=== PATIENT | female | born 1980 | race Native Hawaiian/Other Pacific Islander ===

== ENCOUNTER 2024-11-11 12:46 | Emergency (ER) | payer OTHER, SELFPAY ==
--- OUTSIDE RECORDS SUMMARY | 2024-11-11 12:48 | XMS_ITS | Encounter Summary ---
Author Organization [facility] Address [facility] [place] [address] Care Team Providers Care Dispatcher Chief Coal Slurry Name Role Phone Unavailable Primary Care Provider Unavailabl e Reason for Referral * Diagnostic Imaging Ultrasound - Closed Specialty Diagnoses / Procedures Referred By Contac t Referred To Contact Diagnoses related condition, antepartum Procedures MFM US Comprehensive Single Vania Keller MD [address] [address] Phone: tel: fax: Referral ID Status Reason Start Date Expiration Date Visits Re quested Visits Authorized [id number] Closed 01/29/2018 01/29/2019 1 1 * - Closed Specialty Diagnoses / Procedures Referred By Contac t Referred To Contact Diagnoses related condition, antepartum Vania Keller MD [address] [address] Phone: tel: fax: Referral ID Status Reason Start Date Expiration Date Visits Re quested Visits Authorized [id number] Closed 01/29/2018 01/29/2019 1 1 Question Answer MFM Location [place] LAURIE 03/10/2018 Ultrasound NONE US PROC NONE MFM Issue Abnormal Ultrasound Findings (enter details in Comments) - Gestational diabetes, severe polyhydramnios MFM Consultation (unrelated to Ultrasound findings) Yes (enter details in Comments) - Gestational diabetes with severe polyhydramnios Genetic Counseling Consultation: No fax [phone] [facility] Vania Serrato Comments There is no height or weight on file to calculate BMI. >> Patient may proceed with recommendations for further testing as directed by the Maternal Medicine Specialist >> >> If requesting Echo: MFM will determine appropriate location for exam due to indication. >> If requesting Lung Maturity Amnio: If results indicate lung maturity, induction or C/S is recommended within 36 hours. Please schedule accordingly. Dear Patient: Please be aware that coverage of these services is subject to the terms and limitations of your health insurance plan. Call member services at your health plan with any benefit or coverage questions. Please bring the following to your appointment: >> Any x-rays, CTs or MRIs which have been performed. Contact the facility where they were done to arrange for picker / packer prior to your scheduled appointment. Any new CT, MRI or other procedures ordered by your specialist must be performed at a [facility] or coordinated by your clinic's referral office. >> List of current medications >> This referral request >> Any documents/labs given to you for this referral Encounter Details Date Type Department Care Team (Late st Contact Info) Description 01/29/2018 Orders Only [facility] [place] [address] [place] [address] Vania Keller MD [address] [place] [address] related condition, antepartum (Primary Dx) Social History Tobacco Use Types Packs/Day Years Used Date Smoking Tobacco: Never Assessed Comments Unknown Sex and Gender Information Value Date Recorded Sex Assigned at Not on file Legal 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 2) None of the anomalies commonly detected by ultrasound were evident. 3) Growth parameters and estimated weight were consistent with macrosomia (EFW is in the 99th %ile). 4) There is polyhydramnios with and ANNIE= 34.2 cm. 5) The BPP is 04/02. Narrative 02/05/2018 4:51 PM CDT Comprehensive ----- Pat. Name: EARLINE LUTZ Study Date: 02/05/2018 2:17pm Pat. NO: [id number] Referring MD: VANIA KELLER Site: [facility] Shuttle Operator: Shanita Henry RDMS : 1980 Age: 37 ----- INDICATION ----- Polyhydramnios on outside ultrasound. GDM on Glyburide. METHOD ----- Transabdominal ultrasound examination. View: Suboptimal view: limited by late gestational age and position. ----- Khoury . Number of fetuses: 1. DATING ----- Date Details Gest. age LAURIE LMP 06/04/2017 35 w + 1 d 03/11/2018 U/S 02/05/2018 based upon AC, BPD, Femur, HC 38 w + 3 d 02/16/2018 Assigned dating Dating performed on 02/05/2018, based on the LMP 35 w + 1 d 03/11/2018 GENERAL EVALUATION ----- Cardiac activity: present. FHR 153 bpm. movements: visualized. Presentation: cephalic. Placenta: anterior. Umbilical cord: 3 vessel cord. Amniotic fluid: Amount of AF: Polyhydramnios. MVP 10.3 cm. ANNIE 34.2 cm. Q1 7.9 cm, Q2 8.5 cm, Q3 7.5 cm, Q4 10.3 cm. BIOMETRY ----- Main Biometry: BPD 90.3 mm 36w 4d Hadlock OFD 117.1 mm HC 329.8 mm 37w 4d Hadlock AC 379.2 mm 41w 6d Hadlock Femur 73.2 mm 37w 3d Hadlock Humerus 65.1 mm 37w 5d Guicho Weight Calculation: EFW 3,887 g 99% Grady EFW (lb,oz) 8 lb 9 oz Calculated by Jero ([id number]) Amniotic Fluid / FHR: AF MVP 10.3 cm ANNIE 34.2 cm FHR 153 bpm ANATOMY ----- The following structures appear normal: Head / Neck Cranium. Head size. Head shape. Choroid plexus. Midline falx. Thalami. Neck. Nuchal fold. Face Lips. Profile. Nose. Orbits. Heart / Thorax 4-chamber view. Cardiac position. Cardiac size. Cardiac rhythm. Diaphragm. Abdomen Abdominal wall. Stomach. Kidneys. Bladder. Liver. Bowel. Spine / Skelet. Cervical spine. Thoracic spine. Lumbar spine. Sacral spine. Extremities Arms. Legs. Gender: female. MATERNAL STRUCTURES ----- Cervix Not examined. Right Ovary Not examined. Left Ovary Not examined. BIOPHYSICAL PROFILE ----- 2: breathing movements 2: Gross body movements 2: tone 2: Amniotic fluid volume 04/02: Biophysical profile score RECOMMENDATION ----- We discussed the findings on today's ultrasound with the patient. The patient has a family history of large babies. Her smallest of 5 was near 9 lbs. So there may be some component of gestational diabetes affecting growth but to a large part this may be constitutional. We reviewed her blood sugar history and has lately had a change in meters due to high glucose readings that did not correlate with other meters. She reports fastings as low as 50's and 2 hr pp after breakfast that are below 100. We discussed the concern of hypoglycemia. Recommended she check a 2-4 am glucose as she wakes up to void at night. We discussed that if her fasting glucose continues to be that low, she may need to skip her evening glyburide or take it every other day. I discussed it further with Dr. Keller. Also, recommended twice weekly BPPS and delivery by 39 weeks if testing remains reassuring. Procedure Note Seymour Nation MD - 02/05/2018 Comprehensive ----- Pat. Name:Enmanuel LUTZ Date:02/05/2018 2:17pm Pat. NO: [id number] MD:VANIA KELLER Site:Micgrapher:Shanita Henry RDMS :1980Age:37 ----- INDICATION ----- Polyhydramnios on outside ultrasound. GDM on Glyburide. METHOD ----- Transabdominal ultrasound examination. View: Suboptimal view: limited bylate gestational age and position. ----- Khoury . Number of fetuses: 1. DATING ----- DateDetailsGest. age LAURIE LMP 06/04/201735 w + 1 d 03/11/2018 U/S 02/05/2018based upon AC, BPD, Femur, HC38 w + 3 d 02/16/2018 Assigned dating Dating performed on 02/05/2018, based onthe LMP 35 w +1 d 03/11/2018 GENERAL EVALUATION ----- Cardiac activity: present. FHR 153 bpm. movements: visualized. Presentation: cephalic. Placenta: anterior. Umbilical cord: 3 vessel cord. Amniotic fluid: Amount of AF: Polyhydramnios. MVP 10.3 cm. ANNIE 34.2 cm. Q17.9 cm, Q2 8.5 cm, Q3 7.5 cm, Q4 10.3 cm. BIOMETRY ----- Main Biometry: BPD 90.3 mm36w 4d Hadlock OFD 117.1 mm HC 329.8 mm37w 4d Hadlock AC 379.2 mm41w 6d Hadlock Femur 73.2 mm37w 3d Hadlock Humerus 65.1 mm37w 5d Guicho Weight Calculation: EFW 3,887 g99% Grady EFW (lb,oz) 8 lb 9 oz Calculated by Jero ([id number]) Amniotic Fluid / FHR: AF MVP 10.3 cm ANNIE 34.2 cm FHR 153 bpm ANATOMY ----- The following structures appear normal: Head / Neck Cranium. Head size. Head shape.Choroid plexus. Midline falx. Thalami. Neck. Nuchal fold. Face Lips. Profile. Nose. Orbits. Heart / Thorax 4-chamber view. Cardiac position.Cardiac size. Cardiac rhythm. Diaphragm. Abdomen Abdominal wall. Stomach. Kidneys.Bladder. Liver. Bowel. Spine / Skelet. Cervical spine. Thoracic spine. Lumbarspine. Sacral spine. Extremities Arms. Legs. Gender: female. MATERNAL STRUCTURES ----- Cervix Not examined. Right Ovary Not examined. Left Ovary Not examined. BIOPHYSICAL PROFILE ----- 2: breathing movements 2: Gross body movements 2: tone 2: Amniotic fluid volume 04/02: Biophysical profile score RECOMMENDATION ----- We discussed the findings on today's ultrasound with the patient. Thepatient has a family history of large babies. Her smallest of 5 was near 9lbs. So there may be some component of gestational diabetes affecting growth but to a large partthis may be constitutional. We reviewed her blood sugar history and haslately had a change in meters due to high glucose readings that did not correlate with othermeters. She reports fastings as low as 50's and 2 hr pp after breakfastthat are below 100. We discussed the concern of hypoglycemia. Recommended she check a 2-4 amglucose as she wakes up to void at night. We discussed that if her fastingglucose continues to be that low, she may need to skip her evening glyburide or take itevery other day. I discussed it further with Dr. Keller. Also,recommended twice weekly BPPS and delivery by 39 weeks if testing remains reassuring. IMPRESSION ----- 1) Intrauterine at 35 1/7 weeks gestational age. 2) None of the anomalies commonly detected by ultrasound were evident. 3) Growth parameters and estimated weight were consistent withmacrosomia (EFW is in the 99th %ile). 4) There is polyhydramnios with and ANNIE= 34.2 cm. 5) The BPP is 8. us Vania Keller MD [facility] ORDERABLE S Edited Result - Final documented in this encounter Visit Diagnoses Diagnosis related condition, antepartum- Primary related condition, antepartum documented in this encounter
--- OUTSIDE RECORDS SUMMARY | 2024-11-11 12:48 | XMS_ITS | Clinical Summary ---
Author Organization [employer] [facility] Address [address] [place] [address] Care Team Providers Care Tool Grinder Operator Surface Name Role Phone Pcp, No Primary Care Provider Unavailabl e Allergies Active Allergy Reactions Criticality Noted Date Comments Morphine Anaphylaxis High 12/03/2014 Medications ORDER - MEDICATION ORDER COMPOSER Calcium, 2 tabs daily, unsure of dose 0 10/11/2011 Active naproxen (ANAPROX DS) 550 mg tablet Take 1 tablet by mouth 2 times daily with meals. 30 tablet 0 09/16/2014 Active Active Problems Problem Noted Date Diagnosed Date Surveillance of previously p rescribed intrauterine contraceptive device 05/11/2011 Overview (10/03/2012): Mirena 05/11/11 Dermatophytosis of foot 11/06/2007 Immunizations Immunization Administration Dates Next Due Influenza A (H1N1), Inactivated (Age >=3 Years) 07/19/2009 Influenza, IIV3 (Age >=3 years) 07/19/2009 Influenza, IIV4 08/12/2015 Tdap 12/03/2014 Family History Medical History Relation Name Comments Diabetes Brother 1 Diabetes Brother 2 Diabetes Mother Thyroid Disease Other niece Diabetes Sister 1 Thyroid Disease Sister 1 Diabetes Sister 2 Thyroid Disease Sister 2 Relation Name Status Comments Brother 1 Brother 2 Mother Other Sister 1 Sister 2 Social History Tobacco Use Types Packs/Day Years Used Date Smoking Tobacco: Never Smokeless Tobacco: Never Tobacco Cessation:Counseling Given: Yes Alcohol Use Standard Drinks/Week Comments No 0 (1 standard drink = 0.6 oz pur e alcohol) Comments No Sex and Gender Information Value Date Recorded Sex Assigned at Not on file Legal Sex Female 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 Gender Identity Not on file Sexual Orientation Not on file 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 on 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 Not on file Not on file Obstetrics History Para Term AB IAB SAB Ectopic Multiple Livin g Live Births 6 1 1 5 Date Outcome GA Total Labor Labor/2nd/3rd Weight Sex Type Anes PTL Yamilet A1 A5 Name Clin SAB Last Filed Vital Signs Vital Sign Reading Time Taken Comments Blood Pressure 98/46 09/02/2015 4:06 PM CEMENT CONVEYOR OPERATOR Pulse 64 09/02/2015 4:06 PM CEMENT CONVEYOR OPERATOR Temperature 37.1 C (98.8 F) 09/02/2015 4:06 PM CEMENT CONVEYOR OPERATOR Respiratory Rate 16 09/02/2015 4:06 PM CEMENT CONVEYOR OPERATOR Oxygen Saturation 100% 09/16/2014 8:15 PM CEMENT CONVEYOR OPERATOR Inhaled Oxygen Concentration - - Weight 68.3 kg (150 lb 9.6 oz) 09/02/2015 4:06 P M CEMENT CONVEYOR OPERATOR Height 153 cm (5' 0.25) 09/02/2015 4:06 PM CEMENT CONVEYOR OPERATOR Body Mass Index 29.17 09/02/2015 4:06 PM CEMENT CONVEYOR OPERATOR Plan of Treatment Health Maintenance Due Date Last Done Comments HIV for age 15-65 1996 Hepatitis C screening for age 18-79 1999 BMI (ht and wt on same day) for age 18+ 09/02/2016 09/02/2015 Depression screening for age 12+ 09/02/2016 09/02/2015 Pap test for age 21-65 04/25/2021 8, 04/25/2018, 01/06/2013, Additional history exists COVID-19 vaccine series (2023- season) 2024 Influenza Vaccine (#1) 2024 08/12/2015, 2008 Tetanus booster 12/03/2024 12/03/2014 Tdap Completed 12/03/2014 Pneumococcal series for age 6-49 Aged Out No longer eligible based on patient's age to complete this topic Procedures Procedure Name Priority Date/Time Associated Diagnosis Comments COOK FROZEN DESSERT THIN PREP PAP SCREEN IMAGED Routine 04/25/2018 12:00 PM CDT from Last 3 Months or Most Recently Relevant to Health Maintenance Results * COOK FROZEN DESSERT THIN PREP PAP SCREEN IMAGED (04/25/2018 12:00 PM CDT) Case Report Gynecologic Cytology Report Case: [id number] Authorizing Provider: Vania Lopez Collected: 04/25/2018 Jasmina Harvey MD First Screen: Alejandra Francois Received: 04/29/2018 0836 Specimen: COOK FROZEN DESSERT ThinPrep Vial Screening, Cervical/Vaginal 05/08/2018 7:54 AM CDT [facility]- ENTRAL LABORATORY INTERPRETATION/ RESULT NEGATIVE FOR INTRAEPITHELIAL LESION OR MALIGNANCY (NIL) (none) 05/08/2018 7:54 AM CDT [facility] IMEN ADEQUACY Satisfactory for evaluation Endocervical component present 05/08/2018 7:54 AM CDT [facility] EN[facility]AL [facility] HPV REQUEST HPV and PAP 05/08/2018 7:54 AM CDT [facility] EN[facility]AL LAB[facility] Last Pap Result First Pap/Unknown 7:54 AM CDT [facility] ENTRAL LABORATORY Menstrual Status 05/08/2018 7:54 AM CDT [facility] ENTRAL LAB[facility]ORY Automated Review Successful 05/08/2018 7:54 AM CDT [facility] ENTRAL LAB[facility]ATORY Comment:Specimen processed s uccessfully by automated hand sizer device, ThinPrep Imaging System, [employer] ANCILLARY TESTING COOK FROZEN DESSERT HPV Ordered, Please see separate report 05/08/2018 7:54 AM CDT [facility] Note The pap test is a screening technique, not a diagnostic procedure. It is used primarily to screen for squamous cancers and precursor lesions. Published studies have shown that it is subject to both false negative and false positive results. The pap test should not be used as the sole means to diagnose or exclude pre-malignant and malignant lesions. Cytology is screened and interpreted at [facility] - [address], [place] [address] and [facility] - [address]; [place] [address] and [facility] - [address]; [place] [address] [address] [facility] [place] [address]; [place] [address] 05/08/2018 7:54 AM CDT [facility]-C ENTRAL LABORATORY Other (Cervical/Vagina l) 04/25/2018 12:00 PM CDT 04/29/2018 8:36 AM CDT us Vania Lopez MD PATHOLOGY/CYTOLOGY Final Result [facility]-CENTRAL LABORATORY [address] [place] [address], [place] from Last 3 Months or Most Recently Relevant to Health Maintenance Care Teams Tool Grinder Operator Surface Relationship Specialty Start Date End Date Pcp, No . PCP - General 01/31/16
--- OUTSIDE RECORDS SUMMARY | 2024-11-11 12:48 | XMS_ITS | Clinical Summary ---
Author Organization [facility] Address [address] [place] [address]. 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
[2024-11-11 13:00] VITALS: BP 149/71; PULSE 83; RESP 20; TEMP 36.7; O2SAT 96
--- NOTE | 2024-11-11 13:35 | ED.GENADULT ---
HPI - General Adult General Chief complaint: Cough Stated complaint: Uterus prolapse, cough Time Seen by Provider: 11/11/24 13:01 History of Present Illness HPI narrative: This 44-year-old female comes in reporting a cough for the past week. She arrives with normal vital signs. She states the cough is bothersome in that it is causing some chest discomfort but more importantly she has some degree of uterine prolapse. She states that the cough is causing symptoms of increased prolapse occurrence. She reports itchy sensation at her perineum and does report some discharge of urine and may be a little bit of blood. She states that she has been scratching vigorously trying to alleviate the itch. She states that she has been to an OBGYN appointment and did receive a pessary but has not been using this because it caused more pain. Related Data Previous Rx's ?Medication ?Instructions ?Recorded acetaminophen 300 mg-codeine 30 mg 1 tab PO Q6H PRN pain #15 tabs 11/11/24 tablet nystatin-triamcinolone 100,000 1 applic topical BID #30 grams 11/11/24 unit/g-0.1 % topical cream Review of Systems Status of ROS: Reports: 10 or more systems reviewed and unremarkable except as noted in History and below Narrative: Constitutional: No fevers, no weight gain or loss. Eyes: No discharge. No vision changes. HENT: No congestion, no sore throat, no ear pain. Cardiovascular: No palpitations. Respiratory: No shortness of breath, no wheezes. She reports a cough. Gastrointestinal: No abdominal pain, no vomiting, no diarrhea. Genitourinary: No dysuria. Musculoskeletal: Normal range of motion. Skin: No rashes, no pruritis. Neurological: No dizziness, weakness, sensory change, speech change. Endo/Heme/Allergies: No bruising or bleeding. No polydipsia. Pysch: no suicidality, no anxiety, no insomnia. All other systems reviewed and are negative. Exam Narrative: Exam Narrative: Constitutional: Well-developed, well-nourished, no acute distress. HEENT: Normocephalic, atraumatic. Neck: Normal range of motion. Nontender. Supple. Heart: Regular. No murmurs. Normal rate. Intact distal pulses. Lungs: Clear to auscultation. No chest discomfort. No wheezes, rhonchi, or rales. Abdomen: Normal bowel sounds. Nontender. No rebound tenderness. Genitalia: Deferred. Back: No midline tenderness. Normal range of motion. Extremities: Normal range of motion. No injury. Skin: Intact. No rash. Warm. No erythema or pallor. Neurologic: No altered sensation. No weakness. Alert and oriented. Psychiatric: No suicidality. No anxiety or depression. No insomnia. Nursing notes and vitals signs are reviewed. Const: Vital Signs, click to edit/add: Vital Signs - 24 hr 11/11/24 13:00 Temperature 98.0 F Pulse Rate [Pulse Oximeter] 83 Respiratory Rate 20 Blood Pressure [Ri ght Upper Arm] 149/71 H Pulse Oximetry 96 Oxygen Delivery Me thod Room Air Course Vital Signs Vital signs: Initial Vital Signs Temperature 98.0 F 11/11/24 13:00 Temperature Source Temporal Artery Scan 11/11/24 13:00 Pulse Rate 83 11/11/24 13:00 Respiratory Rate 20 11/11/24 13:00 Blood Pressure 149/71 H 11/11/24 13:00 Blood Pressure Mean 97 11/11/24 13:00 Pulse Oximetry 96 11/11/24 13:00 Oxygen Delivery Method Room Air 11/11/24 13:00 Vital Signs Temperature 98.0 F 11/11/24 13:00 Pulse Rate 83 11/11/24 13:00 Respiratory Rate 20 11/11/24 13:00 Blood Pressure 149/71 H 11/11/24 13:00 Pulse Oximetry 96 11/11/24 13:00 Oxygen Delivery Method Room Air 11/11/24 13:00 Temperature 98.0 F 11/11/24 13:00 Pulse Rate 83 11/11/24 13:00 Respiratory Rate 20 11/11/24 13:00 Blood Pressure 149/71 H 11/11/24 13:00 Pulse Oximetry 96 11/11/24 13:00 Oxygen Delivery Method Room Air 11/11/24 13:00 Medical Decision Making MDM Narrative Medical decision making narrative: This patient comes in with report of cough that is causing worsening prolapse of her uterus. She also has severe itching in her perineum. Urinalysis and nasal pharyngeal swab were negative for infection. She does have some microscopic hematuria. I advised her to follow-up with OBGYN clinic for further management of her prolapse. She did receive a prescription for Tylenol 3 to help with cough. I did also prescribe nystatin and triamcinolone cream for itch. Lab Data Labs: Lab Results 11/11/24 11/11/24 Range/Units 13:01 Unknown Urine Color Light yellow (Yellow) Urine Appearance Clear (Clear) Urine pH 5.5 (5.0-8.5) Ur Specific [facility] 1.010 (1.000-1.030) Urine Protein Negative (Negative) Urine Glucose (UA) 3+ A (Negative) Urine Ketones 2+ A (Negative) Urine Blood 3+ A (Negative) Urine Nitrite Negative (Negative) Urine Bilirubin Negative (Negative) Urine Urobilinogen 0.2 (0.2-1.0) Ur Leukocyte Esterase Trace A (Negative) Urine RBC 25-50 A (0-2) Urine WBC 2-5 (0-5) Ur Squamous Epith Cells Few (None-Few) Urine Bacteria Few A (None) SARS-CoV-2 (PCR) Negative SARS-CoV-2 (Negative) Influenza Type A (PCR) Negative PCR FLU A (Negative) Influenza Type B (PCR) Negative PCR FLU B (Negative) RSV (PCR) Negative PCR RSV (Negative) Discharge Plan Discharge Clinical Impression: Uterine prolapse, Acute upper respiratory infection Patient Disposition: Home, Self-Care Condition: Stable Additional Instructions: Take medication as prescribed and needed. Follow-up with OBGYN clinic for ongoing management of uterine prolapse. Return if worsening. Prescriptions: New acetaminophen-codeine 300-30 mg tablet 1 tab PO Q6H PRN (Reason: pain) Qty: 15 0RF nystatin-triamcinolone 100,000-0.1 unit/g-% cream 1 applic topical BID Qty: 30 0RF Stand Alone Forms: MyHealth Info Instructions
[2024-11-11 13:43] LABS: Appearance Urine Clear (Clear); Bilirubin Urine Negative (Negative); Blood Urine 3+ (Negative); Color Urine Light yellow (Yellow); Glucose Urine 3+ (Negative); Ketones Urine 2+ (Negative); Leukocyte Esterase Urine Trace (Negative); Nitrite Urine Negative (Negative); Protein Urine Negative (Negative); Urobilinogen Urine 0.2 (0.2-1.0); pH Urine 5.5 (5.0-8.5)
[2024-11-11 13:47] LABS: PCR FLU A Negative PCR FLU A (Negative); PCR FLU B Negative PCR FLU B (Negative); PCR RSV Negative PCR RSV (Negative); SARS PCR* Negative SARS-CoV-2 (Negative)
[2024-11-11 13:57] LABS: RBC Urine 25-50 (0-2)
[2024-11-11 13:58] LABS: Bacteria Urine Few; Squamous Epithelial Cell Urine Few (None-Few)
--- OUTSIDE RECORDS SUMMARY | 2024-11-11 14:36 | XMS_ITS | Clinical Summary ---
Author Organization [facility] Address [address] [place] [address]. 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
--- OUTSIDE RECORDS SUMMARY | 2024-11-11 14:36 | XMS_ITS | Clinical Summary ---
Author Organization [facility] Address [address] [place] [id number] Care Team Providers Care Compound Filler Name Role Phone Pcp, No Primary Care [...] on file Legal Sex Female 5:45 AM METAL PRODUCTS VIEWER Gender Identity Not on file Sexual Orientation [...] Comments Blood Pressure 98/46 09/02/2015 4:06 PM METAL PRODUCTS VIEWER Pulse 64 09/02/2015 4:06 PM METAL PRODUCTS VIEWER Temperature 37.1 C (98.8 F) 09/02/2015 4:06 PM METAL PRODUCTS VIEWER Respiratory Rate 16 09/02/2015 4:06 PM METAL PRODUCTS VIEWER Oxygen Saturation 100% 09/16/2014 8:15 PM METAL PRODUCTS VIEWER Inhaled Oxygen Concentration - - Weight 68.3 kg (150 lb 9.6 oz) 09/02/2015 4:06 P M METAL PRODUCTS VIEWER Height 153 cm (5' 0.25) 09/02/2015 4:06 PM METAL PRODUCTS VIEWER Body Mass Index 29.17 09/02/2015 4:06 PM METAL PRODUCTS VIEWER Plan of Treatment Health Maintenance Due Date [...] Procedure Name Priority Date/Time Associated Diagnosis Comments ORAL AND MAXILLOFACIAL SURGERY RESIDENT THIN PREP PAP SCREEN IMAGED Routine 04/25/2018 12:00 PM CDT from Last 3 Months or Most Recently Relevant to Health Maintenance Results * ORAL AND MAXILLOFACIAL SURGERY RESIDENT THIN PREP PAP SCREEN IMAGED (04/25/2018 12:00 PM CDT) Case Report Gynecologic Cytology Report Case: [id number] Authorizing Provider: Vania Lopez Collected: 04/25/2018 Jasmina Harvey MD First Screen: Alejandra Francois Received: 04/29/2018 0836 Specimen: ORAL AND MAXILLOFACIAL SURGERY RESIDENT ThinPrep Vial Screening, Cervical/Vaginal 05/08/2018 7:54 AM CDT [facility] WITH [facility] INTERPRETATION/ RESULT NEGATIVE FOR INTRAEPITHELIAL LESION OR MALIGNANCY (NIL) (none) 05/08/2018 7:54 AM CDT [facility] IMEN ADEQUACY Satisfactory for evaluation Endocervical component present 05/08/2018 7:54 AM CDT [facility] HPV REQUEST HPV and PAP 05/08/2018 7:54 AM CDT [facility] Last Pap Result First Pap/Unknown 7:54 AM CDT [facility] Menstrual Status 05/08/2018 7:54 AM CDT [facility] Automated Review Successful 05/08/2018 7:54 AM CDT [facility] Comment:Specimen processed s uccessfully by automated dry house tender device, ThinPrep Imaging System, [employer] ANCILLARY TESTING ORAL AND MAXILLOFACIAL SURGERY RESIDENT HPV Ordered, Please see separate report 05/08/2018 7:54 AM CDT [facility] Note The pap test is a [...] lesions. Cytology is screened and interpreted at [facility] - [address], [place] [address] and [facility] - [address]; [place] [address] and [facility] - [address]; [place] [address] and [facility] [address]; [place] [address] 05/08/2018 7:54 AM CDT [facility] Other (Cervical/Vagina l) 04/25/2018 12:00 PM CDT 04/29/2018 8:36 AM CDT us Vania Lopez MD PATHOLOGY/CYTOLOGY Final Result [facility] [address] [place] [address], [place] from Last 3 Months or Most Recently Relevant to Health Maintenance Care Teams Compound Filler Relationship Specialty Start Date End Date Pcp, No . PCP - General 01/31/16
--- OUTSIDE RECORDS SUMMARY | 2024-11-11 14:36 | XMS_ITS | Encounter Summary ---
Author Organization [facility] Address [facility] [place] [address] Care Team Providers Care Livestock Farmworker Name Role Phone Unavailable Primary Care Provider Unavailabl e Reason for Referral * Diagnostic Imaging Ultrasound - Closed Specialty Diagnoses / Procedures Referred By Contac t Referred To Contact Diagnoses related condition, antepartum Procedures MFM US Comprehensive Single Vania Keller MD [address] [address] Phone: tel: fax: Referral ID Status Reason Start Date Expiration Date Visits Re quested Visits Authorized [id number] Closed 01/29/2018 01/29/2019 1 1 * - Closed Specialty Diagnoses / Procedures Referred By Contac t Referred To Contact Diagnoses related condition, antepartum Vania Keller MD [address] [address] Phone: tel: fax: Referral ID Status Reason Start Date Expiration Date Visits Re quested Visits Authorized [id number] Closed 01/29/2018 01/29/2019 1 1 Question Answer MFM Location [place] [facility] 03/10/2018 Ultrasound NONE US PROC NONE MFM Issue Abnormal Ultrasound Findings (enter details in Comments) - Gestational diabetes, severe polyhydramnios MFM Consultation (unrelated to Ultrasound findings) Yes (enter details in Comments) - Gestational diabetes with severe polyhydramnios Genetic Counseling Consultation: No fax [phone] [facility] Vania Serrato Comments There is no height [...] where they were done to arrange for roller picker prior to your scheduled appointment. Any new CT, MRI or other procedures ordered by your specialist must be performed at a [facility] or coordinated by your clinic's referral office. >> List of current medications >> This referral request >> Any documents/labs given to you for this referral Encounter Details Date Type Department Care Team (Late st Contact Info) Description 01/29/2018 Orders Only [facility] [place] [address] [place] [address] Vania Keller MD [address] [place] [address] related condition, antepartum (Primary Dx) Social History Tobacco Use Types Packs/Day Years Used Date Smoking Tobacco: Never Assessed Comments Unknown Sex and Gender Information Value Date Recorded Sex Assigned at Not on file Legal Sex Female 4:50 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 NO: [id number] Referring MD: VANIA KELLER Site: [facility] Director Design: Shanita Henry RDMS : 1980 Age: 37 [...] 8 lb 9 oz Calculated by [employer] ([id number]) Amniotic Fluid / FHR: AF MVP 10.3 [...] Pat. Name:Enmanuel LUTZ Date:02/05/2018 2:17pm Pat. NO: [id number] MD:VANIA KELLER Site:Micgrapher:Shanita Henry RDMS :1980Age:37 ----- [...] 8 lb 9 oz Calculated by [employer]ero ([id number]) Amniotic Fluid / FHR: AF MVP 10.3 [...] BPP is 8. us Vania Keller MD [facility] ORDERABLE S Edited Result - Final documented in this encounter Visit Diagnoses Diagnosis related condition, antepartum- Primary related condition, antepartum documented in this encounter
== END 2024-11-11 14:44 | disposition home or self-care (01) ==
PROVIDERS: Emergency Provider Emergency Medicine Emergency Medical Services
DX: J06.9 Acute upper respiratory infection, unspecified (principal); N81.9 Female genital prolapse, unspecified
CPT/HCPCS: 81001; 87086; 87631; 99284

== ENCOUNTER 2025-01-05 11:36 | Outpatient (CLI) | payer OTHER, SELFPAY ==
[2025-01-07 01:29] LABS: HPV Source Cervix; HPV, High Risk by TMA Not Detected
[2025-01-22 17:18] LABS: Pap Test Reviewed by Path Done
== END 2025-01-05 11:37 | disposition home or self-care (01) ==
PROVIDERS: Visit Provider Obstetrics & Gynecology
DX: R32 Unspecified urinary incontinence (principal); N89.8 Other specified noninflammatory disorders of vagina; Z12.4 Encounter for screening for malignant neoplasm of cervix; Z11.51 Encounter for screening for human papillomavirus (HPV); Z13.6 Encounter for screening for cardiovascular disorders; Z13.29 Encounter for screening for other suspected endocrine disorder
CPT/HCPCS: 80053; 80061; 84443; 87086; 87624; 87625; 88141; 88142

== ENCOUNTER 2025-04-07 07:24 | Day surgery (SDC) | payer MEDICAID, SELFPAY ==
[2025-04-07] VITALS (25 sets, daily range): BP systolic 100–117; BP diastolic 53–72; PULSE 65–98; RESP 10–18; TEMP 36.6–37; O2SAT 95–98; BMI 27.0
[2025-04-07] MEDS: SODIUM CHLORIDE 0.9 % (FLUSH) 10 ML SYRINGE IVF (08:15)
[2025-04-07 08:20] LABS: Hemoglobin* 15.0 gm/dL (12.0-16.0)
--- NOTE | 2025-04-07 08:29 | W.PM.H&PU ---
History & Physical Update History & Physical Update H&P Reviewed and patient assessed: No changes noted
[2025-04-07] MEDS: LACTATED RINGERS 1000 ML 1,000 ML 100 ML IV ×4 (08:30→13:55)
[2025-04-07] MEDS: SCOPOLAMINE 1 MG/3 DAY PATCH 1 PATCH TRANSDERMA (08:30)
[2025-04-07 08:43] LABS: Creatinine* 0.4 mg/dL (0.5-1.5); Est. Creatinine Clearance* 136.84; Estimated Glomerular Filt Rate 126 ml/min
[2025-04-07 08:49] LABS: HCG Qualitative Serum* Negative (Negative)
[2025-04-07] MEDS: LIDOCAINE 1%-EPI 1:100,000 20 ML INFILTRATI (09:30)
[2025-04-07] MEDS: BUPIVACAINE 0.25 %/EPI 1:200K 30 ml INJECTION (09:49)
[2025-04-07] MEDS: FLUORESCEIN 10% INJ 500 MG IVP (11:45)
--- NOTE | 2025-04-07 14:16 | P.ANES_ITS ---
Anesthesia Charges Start Date/Time Anesthesia Start Date: 04/07/25 Anesthesia Start Time: 09:10 Stop Date/Time Anesthesia Stop Date: 04/07/25 Anesthesia Stop Time: 14:13 Coding CPT Codes CPT Codes: ANESTH VAGINAL HYSTERECTOMY - 56029 ([id number]) P2 - PATIENT W/MILD SYST DISEASE, QK - STRIP CLEANER 2-4 CNCRNT ANES PROC
--- NOTE | 2025-04-07 14:16 | W.ANESCHARGE ---
Anesthesia Charges Start Date/Time Anesthesia Start Date: 04/07/25 Anesthesia Start Time: 09:10 Stop Date/Time Anesthesia Stop Date: 04/07/25 Anesthesia Stop Time: 14:13 Coding CPT Codes CPT Codes: ANESTH VAGINAL HYSTERECTOMY - 23860 ([id number]) P2 - PATIENT W/MILD SYST DISEASE, QK - DATA BASE DESIGN ANALYST 2-4 CNCRNT ANES PROC
[2025-04-07] MEDS: ONDANSETRON 2 MG/ML inj 4 MG IVP (14:20)
--- NOTE | 2025-04-07 14:20 | P.GYNPRC_ITS ---
Procedure Note Date of procedure: 04/07/25 Will [facility] bill your pro fee for this procedure?: Yes Pre-op diagnosis: Pelvic organ prolapse, mixed urinary incontinence-stress predominant Post-op diagnosis: Same Procedure: Total vaginal hysterectomy, bilateral salpingectomy, modified Andres culdoplasty, anterior colporrhaphy, single incision mid urethral sling placement, posterior colporrhaphy, perineorrhaphy, cystoscopy, removal of Nexplanon. Anesthesia: spinal (Converted to GETA) Complications: None Surgeon: Asuncion Lopez MD Child Development Teacher: Gudelia Villalobos Estimated blood loss (mL): 50 IV fluids (mL): 3,000 Urine Output (mL): 950 Pathology: specimen obtained, sent to pathology (Uterus with cervix, bilateral fallopian tubes) Condition: stable Disposition: floor Findings: Uterine procidentia, uterus of about 8-9cm, multiparous cervix w/o gross lesions . Anterior vaginal wall grade 3 prolapse, posterior vaginal wall prolapse grade 3- after removal of uterus. Grossly normal bilateral fallopian tubes and ovaries. Cystoscopies: Intact bladder mucosa, no foreign suture material, urethra w/o evidence of mesh. Bilateral ureteral jets seen at all cystoscopies. Procedure Description: Patient was taken to the operating room with IV running. She received cefazolin in preoperative prophylaxis. Spinal anesthesia obtained without difficulty. Patient was then placed in the dorsal lithotomy position with her legs fully supported in Candy Cane stirrups. Exam under anesthesia revealed the above-noted findings. She was prepped and draped in the usual sterile fashion. Velásquez catheter was inserted. Cervix visualized and grasped along the anterior lip with a double tooth tenaculum. The cervicovaginal junction was infiltrated with a total of 30 mL of dilute vasopressin. Cervicovaginal junction was incised with the scalpel circumferentially. The vaginal epithelium was dissected off the uterosacral ligaments with a combination of blunt and sharp dissection bilaterally. The anterior colpotomy was performed sharply and a Jasper was placed between the uterus and bladder. Posterior colpotomy was performed sharply and a long weighted speculum was placed in the cul-de-sac. Bilateral uterosacral ligaments were clamped, cut, and suture ligated, and tagged for later identification. The cardinal and portion of the broad ligament bilaterally were clamped, cut, and suture ligated. The remainder of the broad ligament bilaterally was coagulated and transected with the LigaSure Impact device. This freed the uterus from its attachments and it was delivered through the vagina. Attention was 1st turned to the right fallopian tube and ovary, which were physically normal in appearance. The mesosalpinx was crossclamped with the LigaSure Impact device, coagulated, and transected freeing the fallopian tube from the pelvis. This was sent to pathology. This procedure was repeated on the left side and hemostasis was again noted. The bowels were moved out of the pelvis with packing and the patient was placed in Trendelenburg position. The 3 modified Andres's sutures were placed as follows. The 1st was placed approximately 1 cm medial to the left vaginal angle, through the left uterosacral ligament approximately 2.5 cm above the vaginal cuff, pulled through the peritoneum of the cul-de-sac, through the right uterosacral ligament, approximately 2.5 cm above the cuff, and through the vagina about 1 cm from the right vaginal cuff angle. This was labeled #1 and tagged for later identification. Another stitch was placed just medial to the1st through the vaginal cuff, and just above the 1st along the uterosacral ligaments and the peritoneum of the cul-de-sac. This was labelled #2 and tagged for later identification. Finally, a Andres suture was placed, moving from the left uterosacral to the right uterosacral, along the peritoneum of the cul-de-sac, above the 2nd suture. This was labeled #3 and tagged for later identification. Attention was turned to the anterior vaginal wall. The midurethra was marked with a surgical marker, about 1 cm below the external urethral opening and a second roseline was made about 1.5cm below the first one. An Allis was placed below this roseline at midline to delineate the apex of the anterior colporrhaphy. 2 additional Allis clamps placed at the corner of the vaginal cuff anterior wall and the vaginal mucosa was infiltrated with a total of 10 mL of local anesthesia and epinephrine. An incision was made from the vaginal cuff proceeding to the Allis clamp. The vaginal epithelium was dissected off the fibromuscularis beneath it with a combination of sharp and blunt dissection. This was done bilaterally.The fibromuscularis was then plicated in the midline with interrupted sutures of 0 Vicryl. The vaginal epithelium was trimmed slightly on the each side, and the vaginal epithelium was closed with a running stitch of 2-0 Vicryl. Attention was then placed to the midurethra, to the previously marked midurethra. Allis clamps where placed at the 1cm roseline and the 2.5cm roseline. Hydrodissection was made using lidocaine 1%. A vertical incision was made between clamps and using Metzembaum scissors the vaginal mucosa was from the muscularis in a 45 degree angle until reaching the ischiopubic rami, same procedure was performed on the left. Avtar sling loaded and trocar inserted to follow the incision, angled at a 45 degree until feeling the ischiopubic bone, the obturator internus muscle felt and progressive gentle pressure made until midline roseline noted in the midurethra and the sling was deployed. Minimal bleeding noted at this time. The left end of sling was attached to trocar and same procedure was performed on the patients left. The sling was inspected below the urethra, noted to be flat against midurethra with adequate tension, then the sling was deployed. Again, minimal bleeding noted. The vaginal skin was again approximated utilizing Vicryl 2-0. Hemostasis secured. The first of several cystoscopies was performed, r evealing no damage to the bladder mucosa and bilateral ureteral jets. The patient was given sodium fluorescein for better visualization of ureteral jets in cystoscopies to follow. The cystoscope was removed. Then, the modified Andres's sutures were tied down beginning with that labeled #3 first, followed by #2 and then #1. After tying down each of the sutures,cystoscopy was performed, revealing bilateral ureteral jets. Thereafter, the vaginal cuff was closed, incorporating the distalmost aspects of the uterosacral ligaments into the cuff angle closures. This was done in a continuous locking fashion with 0 Vicryl. Hemostasis secured. Attention was then placed to posterior vaginal wall. The posterior hymen was grasped with 2 Allis clamps enough to allow entry of 2 fingers. M idline vagina was marked utilizing Allis clamp. The area of anticipated dissection was injected with dilute vasopressin. A midline incision was made with scalpel from the perineum to the proximal border of the posterior wall defect. Vaginal epithelium was then dissected off of the underlying rectovaginal connective tissue. The rectovaginal fibromuscular layer was then plicated in the midline utilizing Vicryl 2-0, interrupted. The excess vaginal tissue was trimmed. The vaginal mucosa was then reapproximated with Vicryl 2-0 in a continuous interlocking fashion. Perinneorrhaphy followed and a skin incision from Allis clamps to perineum forming a triangle shape was completed, the skin was trimmed off with Metzenbaum scissors and the bulbocavernous muscles were plicated in the midline with Vicryl 2-0, followed by the transverse perineal muscles. The midline incision was then closed in a running fashion using Vicryl 2-0. Bleeding noted from upper vagina sutures and with Allis clamp bleeding site was grasped and elevated and utilizing Vicryl 2-0, a figure of 8 stitch placed and hemostasis was secured. Rectal exam confirmed no injury to the rectum. Vaginal packing with Bacitracin was left in place.All instruments were removed from the vagina, and all counts were correct x2. The patient was taken to the recovery room in a stable condition.The patient tolerated the procedure well and was taken to recovery area in stable condition.
[2025-04-07] MEDS: INSULIN REGULAR, HUMAN 100 UNIT/ML VIAL IVP (14:55)
--- NOTE | 2025-04-07 15:33 | SUR.PHASEI ---
Pain control was barrier to leaving PACU. Total 150 fentanyl, 0.5 dilaudid given. Blood sugar 220, 4u SQ insulin given in R thigh. Total IVF 3L in OR and 200ml in PACU. Nauseous, zofran x1 given with + effect. UOP in PACU 800. No other acute events, VS stable and afebrile when transferred from PACU
--- NOTE | 2025-04-07 17:38 | P.IMCN_ITS ---
Date of Consult Primary Care Provider: Valdez Tomlinson MD Consult Narrative Narrative: Earline Lutz is a 44 year old female [facility] Medical History Vulvovaginitis due to yeast (12/2024) ?B37.31 - Acute candidiasis of vulva and vagina (ICD-10) Surgical History History of vaginal delivery History of laparoscopic appendectomy (2010) ?Z90.49 - Acquired absence of other specified parts of digestive tract (ICD- 10) History of umbilical hernia repair (2007) ?Z98.890 - Other specified postprocedural states (ICD-10) ?Z87.19 - Personal history of other diseases of the digestive system (ICD-10) Family History Mother Diabetes Brother Diabetes Social History (Updated 01/14/25 @ 10:52 by Larissa Bryan~[facility], [facility]) What is your current living situation?: I presently have a place to live Problems where you live: no known problems Problems where you live details: na In the past 12 months, utilities in danger of being shut off: no In past 12 months, lack of transportation kept you from medical appts, meetings, work, or getting things needed for daily living: no In the past 12 mos, have been you worried that your food would run out before you had money to buy more?: never true In the past 12 mos, the food you bought just didn't last and you didn't have money to buy more?: never true Smoking Status: Never smoker Do you use any of these nicotine containing products: None How often do you have a drink containing alcohol: never AUDIT-C Alcohol total score: 0 Non-prescribed substance use: denies use Caffeine: Yes How often does anyone, including family, friends and others, physically hurt you : never How often does anyone, including family, friends and others, insult or talk down to you: never How often does anyone, including family, friends and others, threaten you with harm: never How often does anyone, including family, friends and others, scream or curse at you: never service: No Meds Home Medications and Allergies Home Medications ?Medication ?Instructions ?Recorded ?Confirmed ?Type Blood Glucose Meter #1 ea 01/14/25 04/06/25 Rx Diabetic Test Strips #100 ea 01/14/25 04/07/25 Rx lancets 28 gauge (CareTouch Safety #100 ea 01/14/25 Rx Lancets) metformin 500 mg tablet 1,000 mg (2 x 500 mg) PO BID WMEAL 01/14/25 04/06/25 Rx #360 tabs betamethasone dipropionate 0.05 % 1 applic topical BID PRN itching 01/27/25 04/06/25 Rx topical ointment #15 grams clotrimazole 1 % topical cream 1 applic topical BID NM N 03/04/25 04/06/25 History (Lotrimin AF (clotrimazole)) Allergies Allergy/AdvReac Type Severity Reaction Status Date / Time Opioids - Morphine Analogues Allergy Mild Verified 04/07/25 08:32 Exam Const: Vital Signs, click to edit/add: Vital Signs - 24 hr 04/07/25 08:30 04/07/25 14:13 04/07/25 14:15 Temperature 98.2 F Pulse Rate 73 67 66 Respiratory Rate 16 18 15 Blood Pressure 107/54 L 117/62 107/60 Pulse Oximetry 97 97 96 Oxygen Delivery Me thod Room Air 04/07/25 14:20 04/07/25 14:25 04/07/25 14:30 Temperature Pulse Rate 68 67 67 Respiratory Rate 13 13 12 Blood Pressure 106/53 L 103/55 L 104/58 L Pulse Oximetry 96 98 97 Oxygen Delivery Me thod 04/07/25 14:35 04/07/25 14:40 04/07/25 14:45 Temperature Pulse Rate 65 69 67 Respiratory Rate 12 14 16 Blood Pressure 100/59 L 109/54 L 103/60 Pulse Oximetry 96 96 97 Oxygen Delivery Me thod 04/07/25 14:50 04/07/25 14:55 04/07/25 15:00 Temperature 98.6 F Pulse Rate 65 68 75 Respiratory Rate 13 14 12 Blood Pressure 113/60 108/58 L 104/54 L Pulse Oximetry 95 96 95 Oxygen Delivery Me thod 04/07/25 15:05 04/07/25 15:10 Temperature Pulse Rate 70 67 Respiratory Rate 13 11 L Blood Pressure 111/62 107/58 L Pulse Oximetry 95 95 Oxygen Delivery Me thod Labs Labs: Short CBC 04/07/25 Range/Units 08:11 Hgb 15.0 (12.0-16.0) gm/dL BMP 04/07/25 08:11 Creatinine 0.4 L
[2025-04-07] MEDS: METFORMIN 1,000 MG TABLET 1000 MG PO (18:43)
[2025-04-07] MEDS: ACETAMINOPHEN INJ 1,000 MG/100 ML VIAL 400 MG IVPB (18:58)
--- NOTE | 2025-04-07 22:26 | PC.NURSE ---
2204-4201: Pt. arrives to the floor from the PACU. Net Programmer Analyst at bedside. Pt. is drowsy, awakes by name and gentle touch. Pt. rated pain from 5-8/10; increasing with each assessment. Allergy to morphine confirmed with pt, , and turf farmer present and stated as only known allergy. Updated MD; see EMAR for PRN pain meds. .Pt. complains of pain w/ swallowing. Hospitalist in to see pt. See EMAR for updated orders. Pt. up and to chair and bathroom. Tolerated well. Noted swelling around spinal site. Spoke w/ SALES AND MARKETING ANALYST director of business applications recommended heat and ice and to update if any significant changes. Pain decreased w/ pain meds. Scant bleeding noted on peripad.
[2025-04-07] MEDS: phenoL 1.4 % THROAT SPRAY 1 SPRAY MUCOUS MEM (23:04)
[2025-04-08 00:26] VITALS: BP 110/70; PULSE 80; RESP 16; TEMP 36.8; O2SAT 95
[2025-04-08 05:00] VITALS: BP 109/71; PULSE 74; RESP 16; TEMP 36.8; O2SAT 97
--- NOTE | 2025-04-08 06:32 | P.ANES_ITS ---
Anesthesia Charges Start Date/Time Anesthesia Start Date: 04/07/25 Anesthesia Start Time: 09:10 Stop Date/Time Anesthesia Stop Date: 04/07/25 Anesthesia Stop Time: 14:13 Coding CPT Codes CPT Codes: ANESTH VAGINAL HYSTERECTOMY - 35265 ([id number]) QK - STAND UP FORKLIFT OPERATOR 2-4 CNCRNT ANES PROC, QX - PASSENGER BOOKING CLERK SVC W/ MD MED DIRECTION, P2 - PATIENT W/MILD SYST DISEASE
--- NOTE | 2025-04-08 06:32 | W.ANESCHARGE ---
Anesthesia Charges Start Date/Time Anesthesia Start Date: 04/07/25 Anesthesia Start Time: 09:10 Stop Date/Time Anesthesia Stop Date: 04/07/25 Anesthesia Stop Time: 14:13 Coding CPT Codes CPT Codes: ANESTH VAGINAL HYSTERECTOMY - 55750 ([id number]) QK - COPY LATHE OPERATOR 2-4 CNCRNT ANES PROC, QX - BUCKLE WIRE INSERTER SVC W/ MD MED DIRECTION, P2 - PATIENT W/MILD SYST DISEASE
[2025-04-08 06:47] LABS: Hemoglobin* 13.0 gm/dL (12.0-16.0)
[2025-04-08 07:04] LABS: Creatinine* 0.5 mg/dL (0.5-1.5); Est. Creatinine Clearance* 109.48; Estimated Glomerular Filt Rate 119 ml/min
--- NOTE | 2025-04-08 08:09 | PM.GYNDS1 ---
DS: Providers Provider Time Seen by Provider: 07:30 Date Seen: 04/08/25 Primary care physician: Valdez Tomlinson MD Consults: 04/07/25 17:30 Consult to Physician [CONS] Routine Comment: Consulting Provider: Apple Weems Has provider been notified: Yes Attending Physician on discharge: Vania Lopez MD Date of Discharge: 04/08/25 DS: Diagnosis Discharge Diagnosis (1) S/P vaginal hysterectomy: Status: Acute Problem details: Total vaginal hysterectomy, bilateral salpingectomy, modified Andres culdoplasty, anterior colporrhaphy, single incision mid urethral sling placement, posterior colporrhaphy, perineorrhaphy, 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 Indication for surgery: Pelvic organ prolapse, mixed urinary incontinence-stress predominant. Intraoperative findings were notable for Uterine procidentia, uterus of about 8-9cm, multiparous cervix w/o gross lesions. Anterior vaginal wall grade 3 prolapse, posterior vaginal wall prolapse grade 3- after removal of uterus. Grossly normal bilateral fallopian tubes and ovaries. Cystoscopies: Intact bladder mucosa, no foreign suture material, urethra w/o evidence of mesh. Bilateral ureteral jets seen at all cystoscopies. She had an uncomplicated surgery. Postoperative course has been uneventful. Vitals have been stable. She has remained afebrile. Today, on postoperative day 1, she reports the pain is well controlled. She has been able to ambulate Without difficulty. She is tolerating regular diet. She is passing flatus. Velásquez catheter has been removed, and she is voiding without difficulty. PVR 100mL. 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 GENERAL APPEARANCE: Alert, cooperative female in no acute distress. MOOD & AFFECT: Normal. ABDOMEN: Positive bowel sounds. Soft, non-distended and mildly tender to palpation on lower abdominal quadrants. : Normal external female anatomy. Vaginal packing removed and not completely soaked, no bleeding noted after removal. EXTREMITIES: Nonedematous. Well perfused. Nontender. 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: Data Data Completed and Pending Labs on day of discharge: Labs from last 24 hours 04/08/25 04/07/25 05:57 08:11 Hgb 13.0 15.0 Creatinine 0.5 0.4 L Estimated Creat Clear 109.48 136.84 Estimated GFR 119 126 HCG, Qual Negative Blood Type O Positive Antibody Screen NEGATIVE Procedures Procedures: Procedures Operation Date: 04/07/25 09:00 Actual Procedure Side Surgeon p Nexplanon removal, Total Vaginal Hysterectomy, Bilateral Salpingectomy, Modified McCalls Culdoplasty , Mid urethral Sling placement-single incision and PerineorrhaphyAnterior and Posterior Colporrhaphy, Cystoscopy Vania Lopez MD Discharge Plan Discharge Disposition: Home w/ Parent or Adult Discharging Surgeon: Vania Lopez Follow-Up Appointment: 2 weeks at [facility] Prescriptions: New acetaminophen 500 mg Tablet 1,000 mg PO Q6H PRNQty: 30 0RF ibuprofen 600 mg Tablet 600 mg PO Q6H Qty: 30 0RF polyethylene glycol 3350 [Miralax] 17 gram/dose powder 17 g PO DAILY Qty: 119 0RF Continued metformin 500 mg tablet 1,000 mg PO BIDWMEAL Qty: 360 3RF (DME) Blood Glucose Meter [facility] [place] See Rx Instructions .ROUTE .MEDSUPPLY Qty: 1 0RF Rx Instructions: As directed (DME) Diabetic Test Strips [facility] [place] See Rx Instructions .ROUTE .MEDSUPPLY Qty: 100 3RF Rx Instructions: bid prn (DME) lancets [CareTouch Safety Lancets] 28 gauge [facility] [place] See Rx Instructions .ROUTE .MEDSUPPLY Qty: 100 3RF Rx Instructions: As directed clotrimazole [Lotrimin AF (clotrimazole)] 1 % cream 1 applic topical BID PRN betamethasone dipropionate 0.05 % ointment 1 applic topical BID PRN (Reason: itching) Qty: 15 0RF No Action hydromorphone 2 mg tablet 2 mg PO Q6H PRN (Reason: Pain) Qty: 15 0RF Activity Level: Activity as Tolerated and No Weight Bearing Activity Detail: No lifting more than 15 pounds for 6 weeks-this includes pushing or pulling, nothing vaginally for 6 weeks Discharge Diet: Regular Patient Instructions: Scopolamine (Absorbed through the skin) (Transderm Scop), Acetaminophen (By mouth), Ibuprofen (By mouth), Hydromorphone (By mouth), Polyethylene Glycol 3350 (By mouth), NH+C Vaginal Hysterectomy Follow-up: Valdez Tomlinson MD [Primary Care Provider, Family Practice] Vania Lopez MD [Staff Physician, [facility]] - 04/19/25 10:45 am [facility]erral Note[facility], this the two week appointment. Second appointment is 2024 @10:45, with the same doctor. Discharge Orders: Discharge Order (Routine); Ordered 04/08/25 Ordered By: Vania Lopez
[2025-04-08 08:34] VITALS: BP 111/63; PULSE 76; RESP 20; TEMP 36.8; O2SAT 97
[2025-04-08] MEDS: METFORMIN 1,000 MG TABLET 1000 MG PO (08:47)
== END 2025-04-08 10:39 | disposition home or self-care (01) ==
LOC: OR 07:28 → MEDSURG 07:28
PROVIDERS: PCP Family Medicine; Visit Provider Obstetrics & Gynecology
PROC: 0TJB8ZZ Inspection of Bladder, Via Natural or Artificial Opening Endoscopic (ICD-10-PCS; CPT 57260; principal; 2025-04-07 09:00)
DX: N81.3 Complete uterovaginal prolapse (principal); N81.89 Other female genital prolapse; N39.46 Mixed incontinence; D25.1 Intramural leiomyoma of uterus; Z30.46 Encounter for surveillance of implantable subdermal contraceptive; E11.9 Type 2 diabetes mellitus without complications
CPT/HCPCS: 58262; 57265; 57288; 11982; 00944; 36415; 81025; 82565; 82962; 84703; 85018; 86850; 86900; 86901; T1013; A4314; A9270; C1771; J0131; J0169; J0330; J0690; J1100; J1171; J1885; J2250; J2405; J2704; J3010; J3475; J3490; J7120

== ENCOUNTER 2025-05-18 14:43 | Outpatient (CLI) | payer MEDICAID, SELFPAY ==
--- NOTE | 2025-05-18 14:45 | CRLHL7_ITS ---
For Patients: As a result of the Century Cures Act, medical imaging exams and procedure reports are released immediately into your electronic medical record. You may view this report before your referring provider. If you have questions, please contact your health care provider. CLINICAL HISTORY: Pelvic pain post-surgery COMPARISON: 11/24/2014 TECHNIQUE: 2D combs-scale ultrasound. In addition, color Doppler and spectral Doppler analysis was performed of the pelvis using a transabdominal and transvaginal approach. Transvaginal imaging performed to better visualize the ovaries. FINDINGS: The uterus is absent. The right ovary measures 5.5 x 4.2 x 3.3 cm in size and the left ovary measures 3.6 x 1.8 x 2.8 cm. The ovaries demonstrate normal arterial and venous blood flow on color Doppler and spectral Doppler analysis. There are no suspicious fluid collections within the cul-de-sac. Adjacent to the vaginal cuff is a circumscribed ovoid nonvascular structure which measures 1.6 x 0.9 x 1.8 cm. Benign right ovarian cysts are present. Mostly anechoic cyst in the right ovary measures 2.6 cm. Nonvascular cyst in the right ovary with reticular echoes measures 2.9 x 2.6 x 3.6 cm. IMPRESSION: Simple cyst right ovary and hemorrhagic cyst right ovary. Status post hysterectomy. Ovoid nonvascular structure adjacent to the vaginal cuff probably represents postop scar tissue or a small postop seroma which measures 1.8 cm. Dictated by Pritesh Card MD @ 05/18/2025 4:04:21 PM (Electronically Signed)
== END 2025-05-18 14:44 | disposition home or self-care (01) ==
LOC: US 14:44
PROVIDERS: PCP Family Medicine; Visit Provider Obstetrics & Gynecology
DX: R10.2 Pelvic and perineal pain (principal); N83.291 Other ovarian cyst, right side; G89.18 Other acute postprocedural pain
CPT/HCPCS: 76830; 76856; 93976; T1013